=== PATIENT | female | born 1975 | race Caucasian/White ===

== ENCOUNTER 2017-02-01 10:12 | Emergency (ER) | payer OTHER ==
[~2017-02-01] VITALS: Ht 175.2 cm; Wt 132.0 kg
[~2017-02-01 10:12] MED LIST: AEROSPAN80 MCG/Act IH; ALBUTEROL TX; ALBUTEROL0.09 MG/A2 IH; ALBUTEROL2.5 MG/0.5 INH; AMOXICILLIN500 MG PO; ANAPROX DS550 MG PO; ATOXIMETIN-B1 CAP PO; AVPAK AZITHROM250 M1 PO; BIAXIN500 MG PO; CEFTIN500 MG PO; CIPROFLOXACIN500 MG PO; CLARITIN10 MG PO; CORDROL20 MG PO; DELTASONE10 MG PO; DELTASONE50 MG PO; DOXYCYCLINE HY100 M5 PO; DOXYCYCLINE MO100 MG PO; DOXYCYLINE50 MG PO; DUONEB 3 MG/3 ML3 M1 INH; DUONEB 3ML 3 MG/3 ML INH; ELIMITE5% TP; FLONASE 0.05% 121 EA NAS; FLONASE0.05 MG/AC NS; HYDROCODONE BIT1 T11 PO; KEFLEX500 MG PO; MEDROL DOSEPAK4 MG PO; MOTRIN800 MG PO; NAPROSYN500 MG PO; PEPCID20 MG PO; PREDNICOT20 MG PO; PREDNISONE10 MG PO; PREDNISONE5 MG PO; PREDNISONE50 MG PO; PROAIR HFA0.09 MG/AC IH; PROVENTIL0.09 MG/AC IH; PYRIDIUM200 MG PO; QVAR; QVAR INH; QVAR0.08 MG/AC IH; QVAR40 MCG INH; ROBAXIN500 MG PO; SINGULAIR CHEWAB4 MG PO; SINGULAIR10 MG PO; TRAMADOL HCL50 MG PO; VIBRAMYCIN100 MG PO; XOPENEX HF0.045 MG/A IH; ZITHROMAX Z PA250 MG PO; ZITHROMAX250 MG PO; [UNRECOGNIZED DRUG - OTHER]
[2017-02-01 10:24] VITALS: BP 138/80
[2017-02-01] MEDS ORDERED: NAPROSYN500 MG PO (10:35)
[2017-02-01] MEDS ORDERED: 'PARAFON FORTE500 M1 PO (10:35)
== END 2017-02-01 12:45 | disposition home or self-care (01) ==
LOC: ED 10:12
DX: S13.9XXA Sprain of joints and ligaments of unspecified parts of neck, initial encounter (principal); M79.642 Pain in left hand; R03.0 Elevated blood-pressure reading, without diagnosis of hypertension; F17.200 Nicotine dependence, unspecified, uncomplicated; Z91.010 Allergy to peanuts; Z88.8 Allergy status to other drugs, medicaments and biological substances; V49.9XXA Car occupant (driver) (passenger) injured in unspecified traffic accident, initial encounter; Y93.89 Activity, other specified; Y92.413 State road as the place of occurrence of the external cause; Y99.9 Unspecified external cause status; Z90.49 Acquired absence of other specified parts of digestive tract

== ENCOUNTER 2017-07-22 17:55 | Emergency (ER) | payer OTHER ==
[~2017-07-22] VITALS: Ht 175.2 cm; Wt 136.1 kg
[~2017-07-22 17:55] MED LIST changes: +'PARAFON FORTE500 M1 PO
[2017-07-22] MEDS ORDERED: QVAR8.7 G1 INH (18:45)
[2017-07-22 18:47] LABS: BASO # 0.1 10*3/uL (0.0-0.1); BASO % 0.6 % (0.0-1.0); EOS % 8.5 % (1.0-4.0); HEMATOCRIT 41.3 % (37.0-47.0); HEMOGLOBIN 12.7 g/dl (12.0-16.0); LYMPH % 25.5 % (27.0-41.0); MEAN CELL VOLUME 85.3 fl (81.0-99.0); MEAN CORPUSCULAR HGB 26.2 pg (27.0-31.0); MEAN CORPUSCULAR HGB CONC 30.8 g/dl (33.0-37.0); MEAN PLATELET VOLUME 9.1 fl (9.6-12.3); MONO # 0.7 10*3/uL (0.1-1.0); MONO % 5.6 % (3.0-9.0); NEUT # 7.1 10*3/uL (2.3-7.9); NEUT % 59.3 % (47.0-73.0); PLATELET COUNT AUTOMATED 456 10*3/uL (130-400); RED BLOOD COUNT 4.84 10*6/uL (4.10-5.10); RED CELL DISTRI WIDTH 14.1 % (0-14.5); WHITE BLOOD COUNT 11.9 10*3/uL (4.8-10.8)
[2017-07-22 18:57] LABS: ACT PARTIAL THROMBO TIME 24.2 SECONDS (20.8-31.5); INTERNATIONAL NORM RATIO 0.9 (2.0-3.5)
[2017-07-22 19:02] VITALS: BP 130/58
[2017-07-22 19:03] LABS: ALBUMIN 3.4 gm/dl (3.1-4.5); ALKALINE PHOSPHATASE 77 U/L (45-117); BUN 12 mg/dl (7-24); CHLORIDE 103 mmol/L (98-107); CREATININE 0.89 mg/dL (0.55-1.02); LIPASE 117 U/L (73-393); SGOT/AST 20 IU/L (3-35); SGPT/ALT 27 U/L (12-78); SODIUM 139 mmol/L (136-145); TOTAL PROTEIN 7.4 gm/dL (6.4-8.2); TROPONIN I < 0.015 ng/ml (<0.045)
[2017-07-22] MEDS ORDERED: PREDNISONE10 MG PO (19:46)
[2017-07-22] MEDS ORDERED: LEVAQUIN750 M1 PO (19:46)
== END 2017-07-22 20:08 | disposition home or self-care (01) ==
LOC: ED 17:55
PROVIDERS: Nurse Practitioner Family
DX: J18.1 Lobar pneumonia, unspecified organism (principal); Z98.51 Tubal ligation status; Z98.890 Other specified postprocedural states; Z79.899 Other long term (current) drug therapy; Z88.1 Allergy status to other antibiotic agents; Z91.010 Allergy to peanuts; Z88.6 Allergy status to analgesic agent

== ENCOUNTER → 2017-11-14 | Outpatient (CLI) | payer OTHER ==
[~2017-11-14] MED LIST changes: +LEVAQUIN750 M1 PO; +QVAR8.7 G1 INH
[2017-11-14 16:49] LABS: BASO # 0.1 10*3/uL (0.0-0.1); BASO % 0.5 % (0.0-1.0); EOS # 0.8 10*3/uL (0.0-0.4); EOS % 6.8 % (1.0-4.0); HEMATOCRIT 41.9 % (37.0-47.0); HEMOGLOBIN 12.9 g/dl (12.0-16.0); LYMPH # 2.9 10*3/uL (1.3-4.4); LYMPH % 25.2 % (27.0-41.0); MEAN CELL VOLUME 83.8 fl (81.0-99.0); MEAN CORPUSCULAR HGB 25.8 pg (27.0-31.0); MEAN CORPUSCULAR HGB CONC 30.8 g/dl (33.0-37.0); MONO # 0.6 10*3/uL (0.1-1.0); MONO % 5.3 % (3.0-9.0); NEUT # 7.1 10*3/uL (2.3-7.9); NEUT % 61.9 % (47.0-73.0); PLATELET COUNT AUTOMATED 444 10*3/uL (130-400); RED CELL DISTRI WIDTH 15.5 % (0-14.5); WHITE BLOOD COUNT 11.5 10*3/uL (4.8-10.8)
== END | disposition home or self-care (01) ==
LOC: LAB 16:31
PROVIDERS: Internal Medicine Critical Care Medicine
DX: J45.40 Moderate persistent asthma, uncomplicated (principal)

== ENCOUNTER 2020-03-19 17:24 | Emergency (ER) | payer OTHER ==
[~2020-03-19] VITALS: Ht 167.6 cm; Wt 136.1 kg
[2020-03-19 17:33] VITALS: BP 117/58
[2020-03-19] MEDS ORDERED: NAPROSYN500 MG PO (18:00)
== END 2020-03-19 18:05 | disposition home or self-care (01) ==
LOC: ED 17:24
DX: M79.622 Pain in left upper arm (principal); Z88.8 Allergy status to other drugs, medicaments and biological substances; Z91.010 Allergy to peanuts; Z79.899 Other long term (current) drug therapy

== ENCOUNTER 2020-12-22 20:33 | Emergency (ER) | payer OTHER ==
[~2020-12-22] VITALS: Ht 175.2 cm; Wt 139.7 kg
[2020-12-22 21:45] VITALS: BP 140/86
[2020-12-22] MEDS ORDERED: MONTELUKAST SOD10 MG PO (21:46)
[2020-12-23] MEDS ORDERED: AMOXICILLIN500 M2 PO (01:53)
== END 2020-12-23 02:04 | disposition home or self-care (01) ==
LOC: ED 20:33
DX: K04.7 Periapical abscess without sinus (principal); J44.1 Chronic obstructive pulmonary disease with (acute) exacerbation; Z98.890 Other specified postprocedural states; Z98.51 Tubal ligation status; Z79.899 Other long term (current) drug therapy; Z91.010 Allergy to peanuts; Z88.8 Allergy status to other drugs, medicaments and biological substances

== ENCOUNTER → 2022-04-19 | Outpatient (CLI) | payer OTHER ==
[~2022-04-19] MED LIST changes: +AMOXICILLIN500 M2 PO; +MONTELUKAST SOD10 MG PO
[2022-04-19 09:02] LABS: BASO # 0.1 10*3/uL (0.0-0.1); BASO % 0.5 % (0.0-1.0); EOS # 0.5 10*3/uL (0.0-0.4); EOS % 4.4 % (1.0-4.0); HEMATOCRIT 41.4 % (37.0-47.0); LYMPH # 2.3 10*3/uL (1.3-4.4); LYMPH % 21.2 % (27.0-41.0); MEAN CELL VOLUME 91.4 fl (81.0-99.0); MEAN CORPUSCULAR HGB 28.9 pg (27.0-31.0); MEAN CORPUSCULAR HGB CONC 31.6 g/dl (33.0-37.0); MONO # 0.6 10*3/uL (0.1-1.0); MONO % 5.2 % (3.0-9.0); NEUT # 7.5 10*3/uL (2.3-7.9); NEUT % 68.1 % (47.0-73.0); PLATELET COUNT AUTOMATED 369 10*3/uL (130-400); RED BLOOD COUNT 4.53 10*6/uL (4.10-5.10); RED CELL DISTRI WIDTH 14.4 % (0-14.5)
== END | disposition home or self-care (01) ==
LOC: LAB 08:21
PROVIDERS: ATTEND Internal Medicine Critical Care Medicine
DX: J45.50 Severe persistent asthma, uncomplicated (principal); J30.2 Other seasonal allergic rhinitis; D86.0 Sarcoidosis of lung; Z87.891 Personal history of nicotine dependence; Z68.42 Body mass index [BMI] 45.0-49.9, adult; Z79.899 Other long term (current) drug therapy

== ENCOUNTER → 2022-12-04 | Outpatient (CLI) | payer OTHER ==
[2022-12-04 14:03] LABS: BASO % 0.3 % (0.0-1.0); EOS # 0.3 10*3/uL (0.0-0.4); EOS % 2.4 % (1.0-4.0); HEMATOCRIT 44.2 % (37.0-47.0); LYMPH # 2.6 10*3/uL (1.3-4.4); LYMPH % 22.3 % (27.0-41.0); MEAN CELL VOLUME 87.9 fl (81.0-99.0); MEAN CORPUSCULAR HGB 28.4 pg (27.0-31.0); MEAN CORPUSCULAR HGB CONC 32.4 g/dl (33.0-37.0); MEAN PLATELET VOLUME 8.9 fl (9.6-12.3); MONO # 0.5 10*3/uL (0.1-1.0); NEUT # 8.1 10*3/uL (2.3-7.9); PLATELET COUNT AUTOMATED 422 10*3/uL (130-400); RED BLOOD COUNT 5.03 10*6/uL (4.10-5.10); RED CELL DISTRI WIDTH 14.6 % (0-14.5); WHITE BLOOD COUNT 11.5 10*3/uL (4.8-10.8)
== END | disposition home or self-care (01) ==
LOC: LAB 13:21
PROVIDERS: ATTEND Internal Medicine Critical Care Medicine
DX: J45.20 Mild intermittent asthma, uncomplicated (principal); D86.0 Sarcoidosis of lung; Z87.891 Personal history of nicotine dependence; Z68.43 Body mass index [BMI] 50.0-59.9, adult; Z79.899 Other long term (current) drug therapy

== ENCOUNTER 2023-01-23 20:34 | Emergency (ER) | payer OTHER ==
[~2023-01-23] VITALS: Ht 167.6 cm; Wt 136.1 kg
[2023-01-23 21:09] VITALS: BP 136/64
[2023-01-23] MEDS ORDERED: FASENRA30 MG/1 ML SQ (21:16)
[2023-01-23 21:30] LABS: BASO % 0.1 % (0.0-1.0); HEMATOCRIT 42.3 % (37.0-47.0); LYMPH # 1.8 10*3/uL (1.3-4.4); MEAN CELL VOLUME 88.1 fl (81.0-99.0); MEAN CORPUSCULAR HGB 28.3 pg (27.0-31.0); MEAN CORPUSCULAR HGB CONC 32.2 g/dl (33.0-37.0); MEAN PLATELET VOLUME 8.9 fl (9.6-12.3); MONO # 0.7 10*3/uL (0.1-1.0); MONO % 6.7 % (3.0-9.0); NEUT # 7.1 10*3/uL (2.3-7.9); NEUT % 73.8 % (47.0-73.0); PLATELET COUNT AUTOMATED 338 10*3/uL (130-400); RED CELL DISTRI WIDTH 14.9 % (0-14.5); WHITE BLOOD COUNT 9.6 10*3/uL (4.8-10.8)
[2023-01-23 21:50] LABS: ALKALINE PHOSPHATASE 87 U/L (46-116); BUN 9 mg/dl (9-23); CHLORIDE 104 mmol/L (98-107); POTASSIUM 3.9 mmol/L (3.4-5.1); SGPT/ALT 12 U/L (10-49); TOTAL PROTEIN 7.2 gm/dL (6.0-8.0)
[2023-01-24] MEDS ORDERED: CLINDAMYCIN HC300 MG PO (01:29)
== END 2023-01-24 02:17 | disposition home or self-care (01) ==
LOC: ED 20:34
PROVIDERS: Nurse Practitioner Family
DX: K11.21 Acute sialoadenitis (principal); L03.211 Cellulitis of face; J45.909 Unspecified asthma, uncomplicated; Z91.010 Allergy to peanuts; Z88.8 Allergy status to other drugs, medicaments and biological substances; Z98.890 Other specified postprocedural states

== ENCOUNTER 2023-02-27 15:08 | Inpatient (IN) | payer OTHER ==
[~2023-02-27] VITALS: Ht 170.2 cm; Wt 150.8 kg
[~2023-02-27 15:08] MED LIST changes: +CLINDAMYCIN HC300 MG PO; +FASENRA30 MG/1 ML SQ
[2023-02-27 15:18] VITALS: BP 121/65
[2023-02-27 15:59] LABS: BASO % 0.2 % (0.0-1.0); HEMATOCRIT 42.9 % (37.0-47.0); LYMPH # 1.3 10*3/uL (1.3-4.4); LYMPH % 11.2 % (27.0-41.0); MEAN CORPUSCULAR HGB 27.4 pg (27.0-31.0); MEAN CORPUSCULAR HGB CONC 31.5 g/dl (33.0-37.0); MEAN PLATELET VOLUME 9.2 fl (9.6-12.3); MONO # 0.7 10*3/uL (0.1-1.0); NEUT # 9.6 10*3/uL (2.3-7.9); NEUT % 82.3 % (47.0-73.0); PLATELET COUNT AUTOMATED 328 10*3/uL (130-400); RED BLOOD COUNT 4.93 10*6/uL (4.10-5.10); RED CELL DISTRI WIDTH 15.2 % (0-14.5); WHITE BLOOD COUNT 11.7 10*3/uL (4.8-10.8)
[2023-02-27 16:33] LABS: ALKALINE PHOSPHATASE 95 U/L (46-116); BUN 9 mg/dl (9-23); CHLORIDE 105 mmol/L (98-107); SGPT/ALT 18 U/L (5-49); TOTAL PROTEIN 7.4 gm/dL (6.0-8.0)
[2023-02-27 18:42] VITALS: BP 110/67
[2023-02-27 19:25] VITALS: BP 109/72
[2023-02-27] MEDS ORDERED: ASMANEX110 MC2 INH (19:43)
[2023-02-27 20:40] VITALS: BP 147/79
[2023-02-28] VITALS: BP 139/69
[2023-02-28 06:51] LABS: BASO % 0.2 % (0.0-1.0); HEMATOCRIT 40.5 % (37.0-47.0); LYMPH # 1.1 10*3/uL (1.3-4.4); LYMPH % 10.3 % (27.0-41.0); MEAN CORPUSCULAR HGB 27.7 pg (27.0-31.0); MEAN CORPUSCULAR HGB CONC 31.1 g/dl (33.0-37.0); MEAN PLATELET VOLUME 9.3 fl (9.6-12.3); MONO # 0.6 10*3/uL (0.1-1.0); MONO % 5.3 % (3.0-9.0); NEUT % 83.2 % (47.0-73.0); PLATELET COUNT AUTOMATED 344 10*3/uL (130-400); RED BLOOD COUNT 4.55 10*6/uL (4.10-5.10); RED CELL DISTRI WIDTH 15.3 % (0-14.5); WHITE BLOOD COUNT 10.8 10*3/uL (4.8-10.8)
[2023-02-28 07:36] LABS: BUN 14 mg/dl (9-23); CHLORIDE 107 mmol/L (98-107); CHOLESTEROL 168 mg/dL (<200); FREE T4 0.98 ng/dl (0.89-1.76); LDL CHOLESTEROL 112 mg/dL (9-159); POTASSIUM 4.5 mmol/L (3.4-5.1); TRIGLYCERIDES 95 mg/dl (<150)
[2023-02-28 08:00] VITALS: BP 141/89
[2023-02-28 12:00] VITALS: BP 132/75
[2023-02-28 15:39] VITALS: BP 149/67
[2023-02-28 20:00] VITALS: BP 124/60
[2023-03-01] VITALS: BP 131/52
[2023-03-01 05:22] LABS: ALKALINE PHOSPHATASE 98 U/L (46-116); BUN 13 mg/dl (9-23); CHLORIDE 104 mmol/L (98-107); POTASSIUM 5.3 mmol/L (3.4-5.1); SGPT/ALT 15 U/L (5-49); TOTAL PROTEIN 7.1 gm/dL (6.0-8.0)
[2023-03-01 06:07] LABS: BASO % 0.2 % (0.0-1.0); EOS % 0.1 % (1.0-4.0); HEMATOCRIT 40.7 % (37.0-47.0); LYMPH # 1.4 10*3/uL (1.3-4.4); LYMPH % 8.4 % (27.0-41.0); MEAN CELL VOLUME 90.4 fl (81.0-99.0); MEAN CORPUSCULAR HGB 27.6 pg (27.0-31.0); MEAN CORPUSCULAR HGB CONC 30.5 g/dl (33.0-37.0); MEAN PLATELET VOLUME 9.9 fl (9.6-12.3); MONO # 0.6 10*3/uL (0.1-1.0); MONO % 3.8 % (3.0-9.0); NEUT # 14.5 10*3/uL (2.3-7.9); NEUT % 86.8 % (47.0-73.0); PLATELET COUNT AUTOMATED 363 10*3/uL (130-400); RED CELL DISTRI WIDTH 15.3 % (0-14.5); WHITE BLOOD COUNT 16.7 10*3/uL (4.8-10.8)
[2023-03-01 08:00] VITALS: BP 127/65
[2023-03-01 12:00] VITALS: BP 114/65
[2023-03-01 16:00] VITALS: BP 148/80
[2023-03-01 16:17] LABS: BUN 14 mg/dl (9-23); CHLORIDE 102 mmol/L (98-107); POTASSIUM 4.7 mmol/L (3.4-5.1)
[2023-03-01 20:00] VITALS: BP 121/86
[2023-03-02] VITALS: BP 140/66
[2023-03-02 05:09] LABS: ALKALINE PHOSPHATASE 99 U/L (46-116); BUN 11 mg/dl (9-23); CHLORIDE 103 mmol/L (98-107); POTASSIUM 4.7 mmol/L (3.4-5.1); SGPT/ALT 17 U/L (5-49); TOTAL PROTEIN 7.2 gm/dL (6.0-8.0)
[2023-03-02 06:25] LABS: BASO % 0.2 % (0.0-1.0); HEMATOCRIT 40.9 % (37.0-47.0); LYMPH # 1.6 10*3/uL (1.3-4.4); LYMPH % 9.4 % (27.0-41.0); MEAN CELL VOLUME 88.3 fl (81.0-99.0); MEAN CORPUSCULAR HGB 27.6 pg (27.0-31.0); MEAN CORPUSCULAR HGB CONC 31.3 g/dl (33.0-37.0); MONO # 0.5 10*3/uL (0.1-1.0); NEUT # 14.4 10*3/uL (2.3-7.9); NEUT % 86.4 % (47.0-73.0); PLATELET COUNT AUTOMATED 387 10*3/uL (130-400); RED BLOOD COUNT 4.63 10*6/uL (4.10-5.10); RED CELL DISTRI WIDTH 14.9 % (0-14.5); WHITE BLOOD COUNT 16.6 10*3/uL (4.8-10.8)
[2023-03-02 08:00] VITALS: BP 137/59
[2023-03-02 12:00] VITALS: BP 147/73
[2023-03-02 16:00] VITALS: BP 114/62
[2023-03-02 20:00] VITALS: BP 141/78
[2023-03-03] VITALS: BP 137/62
[2023-03-03 05:14] LABS: BUN 14 mg/dl (9-23); CHLORIDE 101 mmol/L (98-107); POTASSIUM 4.4 mmol/L (3.4-5.1)
[2023-03-03 06:06] LABS: BASO % 0.2 % (0.0-1.0); EOS % 0.1 % (1.0-4.0); HEMATOCRIT 39.9 % (37.0-47.0); LYMPH # 1.4 10*3/uL (1.3-4.4); LYMPH % 8.6 % (27.0-41.0); MEAN CELL VOLUME 87.9 fl (81.0-99.0); MEAN CORPUSCULAR HGB 28.4 pg (27.0-31.0); MEAN CORPUSCULAR HGB CONC 32.3 g/dl (33.0-37.0); MONO # 0.5 10*3/uL (0.1-1.0); MONO % 3.2 % (3.0-9.0); NEUT # 14.2 10*3/uL (2.3-7.9); NEUT % 86.6 % (47.0-73.0); PLATELET COUNT AUTOMATED 382 10*3/uL (130-400); RED BLOOD COUNT 4.54 10*6/uL (4.10-5.10); RED CELL DISTRI WIDTH 14.9 % (0-14.5); WHITE BLOOD COUNT 16.4 10*3/uL (4.8-10.8)
[2023-03-03 08:00] VITALS: BP 135/79
[2023-03-03] MEDS ORDERED: ZITHROMAX250 MG PO (10:32)
[2023-03-03] MEDS ORDERED: PREDNISONE10 MG PO (10:32)
== END 2023-03-03 11:23 | disposition home or self-care (01) | DRG 871 ==
LOC: ED 15:08 → 5E 18:50 → EDHOLD 18:50 → 5E 20:01
PROVIDERS: Internal Medicine; Physician Assistant Medical; Student in an Organized Health Care Education/Training Program; ADMIT Family Medicine; ATTEND Family Medicine
DX: A41.9 Sepsis, unspecified organism (principal); J15.69 Pneumonia due to other Gram-negative bacteria; J96.01 Acute respiratory failure with hypoxia; J45.901 Unspecified asthma with (acute) exacerbation; J44.1 Chronic obstructive pulmonary disease with (acute) exacerbation; Z68.43 Body mass index [BMI] 50.0-59.9, adult; J44.0 Chronic obstructive pulmonary disease with (acute) lower respiratory infection; D86.9 Sarcoidosis, unspecified; R65.20 Severe sepsis without septic shock; R73.9 Hyperglycemia, unspecified; E66.01 Morbid (severe) obesity due to excess calories; F17.210 Nicotine dependence, cigarettes, uncomplicated; R73.03 Prediabetes; Z88.8 Allergy status to other drugs, medicaments and biological substances; Z91.010 Allergy to peanuts; Z98.891 History of uterine scar from previous surgery; Z71.6 Tobacco abuse counseling

== ENCOUNTER 2023-05-30 11:28 | Emergency (ER) | payer OTHER ==
[~2023-05-30] VITALS: Wt 136.1 kg
[~2023-05-30 11:28] MED LIST changes: +ASMANEX110 MC2 INH
[2023-05-30 11:48] VITALS: BP 128/55
[2023-05-30] MEDS ORDERED: MAGNESIUM SULFATE 50 ML IV ONE (12:00)
[2023-05-30] MEDS ORDERED: methylPREDNISolone sod succ 125 MG VIAL IV ONE (12:00)
[2023-05-30 12:40] LABS: BASO % 0.2 % (0.0-1.0); EOS # 0.1 10*3/uL (0.0-0.4); EOS % 1.6 % (1.0-4.0); HEMATOCRIT 45.4 % (37.0-47.0); LYMPH # 1.7 10*3/uL (1.3-4.4); LYMPH % 19.3 % (27.0-41.0); MEAN CELL VOLUME 88.3 fl (81.0-99.0); MEAN CORPUSCULAR HGB 27.4 pg (27.0-31.0); MEAN CORPUSCULAR HGB CONC 31.1 g/dl (33.0-37.0); MONO # 0.6 10*3/uL (0.1-1.0); MONO % 6.7 % (3.0-9.0); NEUT # 6.3 10*3/uL (2.3-7.9); NEUT % 71.7 % (47.0-73.0); PLATELET COUNT AUTOMATED 367 10*3/uL (130-400); RED BLOOD COUNT 5.14 10*6/uL (4.10-5.10); RED CELL DISTRI WIDTH 15.5 % (0-14.5); WHITE BLOOD COUNT 8.7 10*3/uL (4.8-10.8)
[2023-05-30 13:00] LABS: BUN 6 mg/dl (9-23); CHLORIDE 107 mmol/L (98-107); POTASSIUM 3.4 mmol/L (3.4-5.1)
[2023-05-30] MEDS ORDERED: SODIUM CHLORIDE 0.9% 1,000 ML IV ONE (13:20)
[2023-05-30] MEDS ORDERED: Albuterol Sulf/Ipratropium 3 ML VIAL NEB ONE (13:35)
[2023-05-30] MEDS ORDERED: PAXLOVID 150-11 EAC2 PO (15:08)
[2023-05-30] MEDS ORDERED: DEXAMETHASONE6 MG PO (15:08)
== END 2023-05-30 15:15 | disposition home or self-care (01) ==
LOC: ED 11:28
PROVIDERS: Physician Assistant Medical
DX: U07.1 COVID-19 (principal); J45.909 Unspecified asthma, uncomplicated; F17.210 Nicotine dependence, cigarettes, uncomplicated; Z88.8 Allergy status to other drugs, medicaments and biological substances; Z91.010 Allergy to peanuts; Z90.49 Acquired absence of other specified parts of digestive tract; Z98.890 Other specified postprocedural states; Z98.51 Tubal ligation status

== ENCOUNTER 2023-12-26 14:06 | Emergency (ER) | payer OTHER ==
[~2023-12-26] VITALS: Ht 172.7 cm; Wt 136.1 kg
[~2023-12-26 14:06] MED LIST changes: +DEXAMETHASONE6 MG PO; +PAXLOVID 150-11 EAC2 PO
[2023-12-26 14:39] VITALS: BP 155/98
[2023-12-26] MEDS ORDERED: Albuterol Sulf/Ipratropium 3 ML VIAL NEB ONE ×2 (14:50→16:15)
[2023-12-26] MEDS ORDERED: methylPREDNISolone sod succ 125 MG VIAL IV ONE (14:50)
[2023-12-26 15:09] LABS: BASO % 0.3 % (0.0-1.0); EOS % 0.1 % (1.0-4.0); HEMATOCRIT 43.8 % (37.0-47.0); LYMPH # 2.3 10*3/uL (1.3-4.4); LYMPH % 20.3 % (27.0-41.0); MEAN CELL VOLUME 89.9 fl (81.0-99.0); MEAN CORPUSCULAR HGB 28.7 pg (27.0-31.0); MEAN PLATELET VOLUME 8.8 fl (9.6-12.3); MONO # 0.6 10*3/uL (0.1-1.0); MONO % 5.3 % (3.0-9.0); NEUT # 8.3 10*3/uL (2.3-7.9); NEUT % 73.3 % (47.0-73.0); PLATELET COUNT AUTOMATED 381 10*3/uL (130-400); RED BLOOD COUNT 4.87 10*6/uL (4.10-5.10); RED CELL DISTRI WIDTH 13.8 % (0-14.5); WHITE BLOOD COUNT 11.4 10*3/uL (4.8-10.8)
[2023-12-26 15:28] LABS: BUN 7 mg/dl (9-23); CHLORIDE 102 mmol/L (98-107); POTASSIUM 3.8 mmol/L (3.4-5.1)
[2023-12-26] MEDS ORDERED: MAGNESIUM SULFATE 50 ML IV ONE (16:15)
[2023-12-26] MEDS ORDERED: PREDNISONE20 M1 PO (18:55)
[2023-12-26] MEDS ORDERED: AVPAK AZITHROM250 M1 PO (18:55)
[2023-12-26] MEDS ORDERED: AZITHROMYCIN 250 MG TAB PO ONE (19:00)
== END 2023-12-26 19:11 | disposition home or self-care (01) ==
LOC: ED 14:06
PROVIDERS: Nurse Practitioner Family
DX: J44.1 Chronic obstructive pulmonary disease with (acute) exacerbation (principal); F17.210 Nicotine dependence, cigarettes, uncomplicated; Z86.16 Personal history of COVID-19; Z91.010 Allergy to peanuts; Z88.8 Allergy status to other drugs, medicaments and biological substances; Z90.49 Acquired absence of other specified parts of digestive tract; Z98.890 Other specified postprocedural states; Z98.51 Tubal ligation status

== ENCOUNTER 2024-01-10 03:40 | Emergency (ER) | payer OTHER ==
[~2024-01-10] VITALS: Ht 172.7 cm; Wt 136.1 kg
[~2024-01-10 03:40] MED LIST changes: +PREDNISONE20 M1 PO
[2024-01-10 03:50] VITALS: BP 161/73
== END 2024-01-10 04:29 | disposition left against medical advice (07) ==
LOC: ED 03:40
DX: R11.2 Nausea with vomiting, unspecified (principal); J45.909 Unspecified asthma, uncomplicated; Z91.010 Allergy to peanuts; Z88.8 Allergy status to other drugs, medicaments and biological substances; Z53.21 Procedure and treatment not carried out due to patient leaving prior to being seen by health care provider

== ENCOUNTER 2024-06-24 12:33 | Inpatient (IN) | payer OTHER ==
[~2024-06-24] VITALS: Ht 172.7 cm; Wt 134.7 kg
[2024-06-24 12:42] VITALS: BP 137/74
[2024-06-24] MEDS ORDERED: Albuterol Sulf/Ipratropium 3 ML VIAL NEB ONE (12:55)
[2024-06-24] MEDS ORDERED: methylPREDNISolone sod succ 125 MG VIAL IV ONE (12:55)
[2024-06-24 13:08] LABS: BASO % 0.2 % (0.0-1.0); EOS % 0.1 % (1.0-4.0); HEMATOCRIT 46.8 % (37.0-47.0); MEAN CELL VOLUME 91.8 fl (81.0-99.0); MEAN CORPUSCULAR HGB 28.6 pg (27.0-31.0); MEAN CORPUSCULAR HGB CONC 31.2 g/dl (33.0-37.0); MEAN PLATELET VOLUME 9.1 fl (9.6-12.3); MONO # 0.6 10*3/uL (0.1-1.0); NEUT # 8.8 10*3/uL (2.3-7.9); NEUT % 72.3 % (47.0-73.0); PLATELET COUNT AUTOMATED 369 10*3/uL (130-400); RED CELL DISTRI WIDTH 13.5 % (0-14.5); WHITE BLOOD COUNT 12.2 10*3/uL (4.8-10.8)
[2024-06-24 13:28] LABS: BUN 9 mg/dl (9-23); CHLORIDE 105 mmol/L (98-107); POTASSIUM 4.2 mmol/L (3.4-5.1)
[2024-06-24] MEDS ORDERED: MAGNESIUM SULFATE 50 ML IV ONE (14:35)
[2024-06-24] MEDS ORDERED: AZITHROMYCIN 250 ML IV ONE ×2 (15:10→18:00)
[2024-06-24] MEDS ORDERED: cefTRIAXone Sodium 1 GM/10 ML SYR IV ONE ×2 (15:15→17:30)
[2024-06-24] MEDS ORDERED: Ondansetron Hydrochloride 4 MG/2 ML VIAL IV PRN (16:30)
[2024-06-24] MEDS ORDERED: MORPHINE Sulfate 2 MG/ML SYR IV PRN (16:30)
[2024-06-24] MEDS ORDERED: Albuterol Sulf/Ipratropium 3 ML VIAL NEB SCH (16:30)
[2024-06-24] MEDS ORDERED: Acetaminophen/Hydrocodone 5 MG/325 MG TABLET PO PRN (16:30)
[2024-06-24] MEDS ORDERED: BENZONATATE 100 MG CAP PO PRN (16:40)
[2024-06-24] MEDS ORDERED: Albuterol Sulfate 2.5 MG/3 ML VIAL NEB PRN (17:05)
[2024-06-24] MEDS ORDERED: Montelukast Sodium 10 MG TAB PO SCH (18:00)
[2024-06-24 20:35] VITALS: BP 133/76
[2024-06-24] MEDS ORDERED: methylPREDNISolone sod succ 40 MG VIAL IV SCH (22:00)
[2024-06-24 23:30] VITALS: BP 157/82
[2024-06-25 05:41] LABS: ALKALINE PHOSPHATASE 95 U/L (46-116); BUN 14 mg/dl (9-23); CHLORIDE 101 mmol/L (98-107); CHOLESTEROL 222 mg/dL (<200); LDL CHOLESTEROL 138 mg/dL (9-159); POTASSIUM 4.6 mmol/L (3.4-5.1); SGPT/ALT 35 U/L (5-49); TOTAL PROTEIN 7.7 gm/dL (6.0-8.0); TRIGLYCERIDES 186 mg/dl (<150)
[2024-06-25 06:16] LABS: BASO % 0.2 % (0.0-1.0); EOS % 0.1 % (1.0-4.0); HEMATOCRIT 46.2 % (37.0-47.0); MEAN CELL VOLUME 92.8 fl (81.0-99.0); MEAN CORPUSCULAR HGB 28.7 pg (27.0-31.0); MEAN PLATELET VOLUME 9.7 fl (9.6-12.3); MONO # 0.3 10*3/uL (0.1-1.0); MONO % 1.8 % (3.0-9.0); NEUT # 14.9 10*3/uL (2.3-7.9); NEUT % 89.8 % (47.0-73.0); PLATELET COUNT AUTOMATED 387 10*3/uL (130-400); RED BLOOD COUNT 4.98 10*6/uL (4.10-5.10); RED CELL DISTRI WIDTH 13.5 % (0-14.5); WHITE BLOOD COUNT 16.6 10*3/uL (4.8-10.8)
[2024-06-25] MEDS ORDERED: DEXTROSE 10 % IN WATER 250 ML IV PRN (07:35)
[2024-06-25 08:00] VITALS: BP 139/82
[2024-06-25] MEDS ORDERED: Nicotine 21 MG PATCH T SCH (10:00)
[2024-06-25] MEDS ORDERED: Enoxaparin Sodium 40 MG/0.4 ML SYR SC SCH (10:00)
[2024-06-25] MEDS ORDERED: INSULIN LISPRO 1 UNIT/0.01 ML SQ SCH (11:30)
[2024-06-25 12:00] VITALS: BP 145/84
[2024-06-25] MEDS ORDERED: PREDNISONE10 MG PO (15:27)
[2024-06-25] MEDS ORDERED: ZITHROMAX250 MG PO (15:27)
[2024-06-25] MEDS ORDERED: METFORMIN HYDR500 MG PO (15:36)
[2024-06-25] MEDS ORDERED: cefTRIAXone Sodium 1 GM in SYRINGE INFUSION 10 ML IV SCH (16:00)
[2024-06-25] MEDS ORDERED: AZITHROMYCIN 250 ML IV SCH (17:00)
== END 2024-06-25 16:37 | disposition home or self-care (01) | DRG 189 ==
LOC: ED 12:33 → EDHOLD 15:24 → 4E 15:24
PROVIDERS: Internal Medicine; Nurse Practitioner Family; ADMIT Family Medicine; ATTEND Family Medicine
DX: J96.01 Acute respiratory failure with hypoxia (principal); J44.1 Chronic obstructive pulmonary disease with (acute) exacerbation; J45.41 Moderate persistent asthma with (acute) exacerbation; Z68.42 Body mass index [BMI] 45.0-49.9, adult; D86.9 Sarcoidosis, unspecified; R73.9 Hyperglycemia, unspecified; F17.210 Nicotine dependence, cigarettes, uncomplicated; Z20.822 Contact with and (suspected) exposure to COVID-19; E66.01 Morbid (severe) obesity due to excess calories; Z90.49 Acquired absence of other specified parts of digestive tract; Z88.8 Allergy status to other drugs, medicaments and biological substances; Z91.010 Allergy to peanuts; Z79.899 Other long term (current) drug therapy

== ENCOUNTER 2024-11-09 07:42 | Emergency (ER) | payer OTHER ==
[~2024-11-09] VITALS: Ht 170.1 cm; Wt 136.1 kg
[~2024-11-09 07:42] MED LIST changes: +METFORMIN HYDR500 MG PO
[2024-11-09] MEDS ORDERED: Ondansetron Hydrochloride 4 MG/2 ML VIAL IV ONE (08:05)
[2024-11-09] MEDS ORDERED: SODIUM CHLORIDE 0.9% 1,000 ML IV SCH (08:05)
[2024-11-09 08:50] LABS: BILIRUBIN Negative (Negative); BLOOD 1+ (Negative); CLARITY Turbid (Clear); COLOR Yellow (Yellow); KETONE 1+ (Negative); LEUKO ESTERASE 3+ (Negative); NITRITE Positive (Negative); PH 6.5 (4.5-8.0); SPECIFIC GRAVITY 1.015 (1.001-1.030); UROBILINOGEN 1.0 E.U./dl (0.0-1.0)
[2024-11-09 08:50] LABS: BASO # 0.0 10*3/uL (0.0-0.1); BASO % 0.1 % (0.0-1.0); EOS # 0.0 10*3/uL (0.0-0.4); EOS % 0.1 % (1.0-4.0); MEAN CELL VOLUME 89.4 fl (81.0-99.0); MEAN CORPUSCULAR HGB 28.9 pg (27.0-31.0); MEAN PLATELET VOLUME 9.4 fl (9.6-12.3); MONO # 0.7 10*3/uL (0.1-1.0); MONO % 5.8 % (3.0-9.0); NEUT # 10.3 10*3/uL (2.3-7.9); NEUT % 83.8 % (47.0-73.0); NUCLEATED RED BLOOD CELL 0.0 % (0.0-0.0); NUCLEATED RED BLOOD CELL 0.0 10*3/uL (0.0-0.0); PLATELET COUNT AUTOMATED 339 10*3/uL (130-400); RED CELL DISTRI WIDTH 14.8 % (0-14.5)
[2024-11-09 09:00] LABS: BACTERIA 4+; WBC TNTC wbc/hpf (0-5)
[2024-11-09 09:11] LABS: BUN 12 mg/dl (9-23)
[2024-11-09] MEDS ORDERED: CIPRO500 MG PO (09:28)
[2024-11-09] MEDS ORDERED: Ondansetron4 MG PO (09:28)
[2024-11-09 09:35] VITALS: BP 140/60
== END 2024-11-09 09:39 | disposition home or self-care (01) ==
LOC: ED 07:42
PROVIDERS: Emergency Medicine
DX: N39.0 Urinary tract infection, site not specified (principal); R50.9 Fever, unspecified; E11.9 Type 2 diabetes mellitus without complications; E66.01 Morbid (severe) obesity due to excess calories; F17.210 Nicotine dependence, cigarettes, uncomplicated; Z98.890 Other specified postprocedural states; Z90.49 Acquired absence of other specified parts of digestive tract; Z68.42 Body mass index [BMI] 45.0-49.9, adult; Z79.84 Long term (current) use of oral hypoglycemic drugs; Z91.010 Allergy to peanuts; Z79.899 Other long term (current) drug therapy; Z88.8 Allergy status to other drugs, medicaments and biological substances